=== PATIENT | female | born 1990 | race Caucasian/White ===

== ENCOUNTER → 2017-02-13 | Outpatient (CLI) | payer BC, OTHER ==
[2017-02-13 10:40] LABS: Basophils # (A) 0.1 k/uL (0-0.2); Basophils % (A) 1 %; CH 27.5; CHCM 33.8; Eosinophils # (A) 0.4 k/uL (0-0.7); Eosinophils % (A) 4 %; HCT 37.4 % (34.0-46.0); HDW 2.52; HGB 13.1 gm/dL (11.4-16.0); Luc # (Auto) 0.11; Luc % (Auto) 1; Lymphocytes # (A) 2.5 k/uL (1.0-4.8); Lymphocytes % (A) 27 %; MCH 28.6 pg (25.0-35.0); MCV 81.8 fL (80.0-100.0); Mean Platelet Volume 8.3; Monocytes # (A) 0.4 k/uL (0-1.0); Monocytes % (A) 5 %; Neutrophils # (A) 5.7 k/uL (1.3-7.7); Neutrophils % (A) 62 %; RBC 4.58 m/uL (3.80-5.40); WBC 9.2 k/uL (3.8-10.6); WBC (Perox) 9.24
[2017-02-13 12:20] LABS: ALT 62 U/L (9-52); AST 36 U/L (14-36); Alkaline Phosphatase 85 U/L (38-126); Anion Gap 11 mmol/L; Blood Urea Nitrogen 9 mg/dL (7-17); Calcium 9.3 mg/dL (8.4-10.2); Carbon Dioxide 22 mmol/L (22-30); Chloride 108 mmol/L (98-107); Glucose 89 mg/dL (74-99); Iron 69 ug/dL (37-170); Non-African American GFR(MDRD) >60 (>60 ml/min/1.73 sqM); Potassium 4.5 mmol/L (3.5-5.1); Sodium 141 mmol/L (137-145); Total Bilirubin 0.5 mg/dL (0.2-1.3); Total Protein 6.8 g/dL (6.3-8.2); Triglycerides 83 mg/dL (<150)
[2017-02-13 12:38] LABS: % Iron Saturation 19.4 % (20-50); Total Iron Binding Capacity 355 ug/dL (265-497)
[2017-02-13 13:15] LABS: Vitamin B12 379 pg/mL (239-931)
== END | disposition home or self-care (01) ==
LOC: LABWHC1 10:11
PROVIDERS: ATTEND Family Medicine
DX: D50.9 Iron deficiency anemia, unspecified (principal); R00.2 Palpitations; Q79.6 Ehlers-Danlos syndromes
CPT/HCPCS: 36415; 80053; 82533; 82607; 83540; 83550; 83721; 83835; 84439; 84443; 84478; 85025

== ENCOUNTER → 2017-03-01 | Outpatient (CLI) | payer BC, OTHER ==
--- NOTE | 2017-03-01 16:01 | US ---
EXAMINATION TYPE: US thyroid st tissue head/neck DATE OF EXAM: 03/01/2017 COMPARISON: NONE CLINICAL HISTORY: 26-year-old female R00.2 Palpitations,E04.1 Thyroid Nodule. TECHNIQUE: Multiple sonographic images of the thyroid gland are obtained. FINDINGS: Right Lobe: 5.0 x 1.4 x 1.5 cm Left Lobe: 4.3 x 1.2 x 1.3 cm Isthmus Thickness: 0.2 cm There may be very minimal glandular heterogeneity. However, no discrete nodule is seen. Bilateral neck scanned, no evidence of lymphadenopathy. IMPRESSION: Thyroid gland measures at the upper limits of normal in size. There is slight glandular heterogeneity . Given the patient's symptoms, correlate to exclude hyperthyroidism and diffuse thyroiditis.
--- NOTE | 2017-03-03 12:52 | ECHOF ---
Referral Reason:R00.2 Palpitations,E04.1 Thyroid Nodule MEASUREMENTS -------- HEIGHT: 165.1 cm WEIGHT: 86.2 kg BP: 128/82 RVIDd: 2.9 cm (< 3.3) IVSd: 0.9 cm (0.6 - 1.1) LVIDd: 4.9 cm (3.9 - 5.3) LVPWd: 0.9 cm (0.6 - 1.1) IVSs: 1.3 cm LVIDs: 3.4 cm LVPWs: 1.2 cm LAESV Index (A-L): 8.36 ml/m Ao Diam: 2.9 cm (2.0 - 3.7) AV Cusp: 1.9 cm (1.5 - 2.6) LA Diam: 2.9 cm (2.7 - 3.8) MV EXCURSION: 18.829 mm (> 18.000) MV EF SLOPE: 169 mm/s (70 - 150) EPSS: 0.8 cm MV E Carlos: 0.58 m/s MV DecT: 182 ms MV A Carlos: 0.57 m/s MV E/A Ratio: 1.01 RAP: 5.00 mmHg RVSP: 8.92 mmHg FINDINGS -------- Sinus rhythm. This was a technically adequate study. Overall left ventricular systolic function is normal with, an EF between 55 - 60 %. The right ventricle is normal in size and function. Normal LA size by volume 22+/-6 ml/m2. The right atrium is normal in size. The aortic valve is trileaflet, and appears structurally normal. No aortic stenosis or regurgitation. The mitral valve leaflets are mildly thickened. There is trace mitral regurgitation. Trace tricuspid regurgitation present. There is no evidence of pulmonary hypertension. The right ventricular systolic pressure, as measured by Doppler, is 8.92mmHg. The pulmonic valve is normal. The aortic root size is normal. Normal inferior vena cava with normal inspiratory collapse consistent with estimated right atrial pressure of 5 mmHg. The pericardium is normal. There is no pericardial effusion. CONCLUSIONS -------- 1. Sinus rhythm. 2. There is no evidence of pulmonary hypertension. 3. The right ventricular systolic pressure, as measured by Doppler, is 8.92mmHg. 4. The aortic root size is normal. 5. There is no pericardial effusion. 6. This was a technically adequate study. 7. Overall left ventricular systolic function is normal with, an EF between 55 - 60 %. 8. Normal LA size by volume 22+/-6 ml/m2. 9. The right atrium is normal in size. 10. The aortic valve is trileaflet, and appears structurally normal. No aortic stenosis or regurgitation. 11. The mitral valve leaflets are mildly thickened. 12. There is trace mitral regurgitation. 13. Trace tricuspid regurgitation present. GEAR ROOM KEEPER: Joshua Pierre RDCS
== END | disposition home or self-care (01) ==
LOC: RADECHMAIN 14:55
PROVIDERS: ATTEND Family Medicine
DX: E04.1 Nontoxic single thyroid nodule (principal); I05.8 Other rheumatic mitral valve diseases
CPT/HCPCS: 76536; 93306

== ENCOUNTER → 2017-03-07 | Outpatient (CLI) | payer BC, OTHER ==
[2017-03-07 16:18] LABS: HCG,Quantitative Serum <2.4 mIU/mL; Prolactin 13.8 ng/mL (3.0-18.6)
[2017-03-07 16:34] LABS: Estradiol 211 pg/mL
== END | disposition home or self-care (01) ==
LOC: LABWHC1 11:27
PROVIDERS: ATTEND Obstetrics & Gynecology
DX: N91.2 Amenorrhea, unspecified (principal)
CPT/HCPCS: 36415; 82670; 83001; 84146; 84702

== ENCOUNTER → 2017-05-23 | Outpatient (CLI) | payer BC, OTHER ==
[2017-05-23 10:02] LABS: Basophils # (A) 0.1 k/uL (0-0.2); Basophils % (A) 1 %; CH 27.7; CHCM 32.2; Eosinophils # (A) 0.4 k/uL (0-0.7); Eosinophils % (A) 6 %; HCT 40.8 % (34.0-46.0); HDW 2.42; HGB 12.9 gm/dL (11.4-16.0); Luc # (Auto) 0.08; Luc % (Auto) 1; Lymphocytes % (A) 25 %; MCH 27.3 pg (25.0-35.0); MCHC 31.7 g/dL (31.0-37.0); MCV 86.3 fL (80.0-100.0); Mean Platelet Volume 8.5; Monocytes # (A) 0.4 k/uL (0-1.0); Monocytes % (A) 5 %; Neutrophils % (A) 63 %; RBC 4.73 m/uL (3.80-5.40); RDW 12.6 % (11.5-15.5); WBC (Perox) 8.14
[2017-05-23 16:03] LABS: Treponemal Ab Non-Reactive (Non-Reactive)
[2017-05-23 16:46] LABS: Cyclic Citrull Pep IgG Unit <0.5 U/mL; Cyclic Citrullinated Pep IgG NEGATIVE (NEGATIVE)
[2017-05-24 12:29] LABS: Thyroid Stim Immun Quant <0.10 IU/L (<0.10)
[2017-05-24 13:05] LABS: HLA B27 Comment SEEBELOW
== END | disposition home or self-care (01) ==
LOC: LABWHC1 09:25
PROVIDERS: ATTEND Ophthalmology Retina Specialist
DX: E04.1 Nontoxic single thyroid nodule (principal); I47.1 Supraventricular tachycardia
CPT/HCPCS: 36415; 82164; 84439; 84443; 84445; 84480; 85025; 85549; 86200; 86376; 86480; 86780; 86812; 87390

== ENCOUNTER → 2017-12-25 | Outpatient (CLI) | payer BC | END | disposition home or self-care (01) | LOC: RADECHMAIN 12:14 | PROVIDERS: ATTEND Family Medicine | DX: I47.1 Supraventricular tachycardia (principal) | CPT/HCPCS: 93270; 93271 ==

== ENCOUNTER → 2019-10-23 | Outpatient (CLI) | payer BC, OTHER ==
[~2019-10-23] MED LIST: IRON SUCROSE 200 MG in SODIUM CHLORIDE 0.9% 100 ML IVPB NR; SODIUM CHLORIDE 0.9% 500 ML 500 ML in EMPTY BAG 1 BAG IV PRN
[2019-10-23 07:47] VITALS: BP 119/78; PULSE 87; RESP 16; TEMP 98
== END | disposition home or self-care (01) ==
LOC: PROCWHC3 07:22
PROVIDERS: ATTEND Family Medicine
DX: D50.0 Iron deficiency anemia secondary to blood loss (chronic) (principal); N92.0 Excessive and frequent menstruation with regular cycle